=== PATIENT | female | born 1960 | race Caucasian/White ===

== ENCOUNTER 2017-11-13 06:24 | Day surgery (SDC) | payer MEDICAID ==
[~2017-11-13 06:24] MED LIST: Sodium Chloride 0.9% 10 ML Syringe FLUSH PRN
[2017-11-13] MEDS ORDERED: Sodium Chloride 0.9% 10 ML Syringe FLUSH PRN (07:00)
--- NOTE | 2017-11-13 08:53 | OR ---
DATE OF PROCEDURE: 11/13/2017 POSTOPERATIVE CARE: Postoperative care will be provided mainly at the [address] [place] [address] [facility] in conjunction with [facility]. PREOPERATIVE DIAGNOSES: 1. Nuclear sclerotic cataract, right eye. 2. Posterior subcapsular cataract, right eye. PREOPERATIVE DIAGNOSES: 1. Nuclear sclerotic cataract, right eye. 2. Posterior subcapsular cataract, right eye. PROCEDURES: 1. Phacoemulsification with intraocular lens placement, right eye. 2. Cleaning of the posterior capsule with Gorge Squee[place]e. ANESTHESIA: Topical and intracameral. ESTIMATED BLOOD LOSS: Minimal. COMPLICATIONS: None. PATHOLOGY SPECIMENS: None. SURGICAL FINDINGS: None. INDICATION FOR PROCEDURE: The patient is a 57-year-old female with history of a visually significant cataract in the right eye, which interfered with activities of daily living. This consisted of a nuclear sclerosis cataract. Following careful discussion of the risks, benefits and alternatives to cataract extraction with intraocular lens placement including blindness and , the patient elected to proceed, and informed, written consent was obtained prior to the procedure. DESCRIPTION OF THE PROCEDURE: The patient was previously identified, and a andrey placed above the right eye. All sources, including the patient, indicated that the right eye was the correct eye. The patient was subsequently taken to the operating room where standard monitors were applied. The patient was then prepped and draped in the usual sterile fashion for ophthalmic surgery. Attention was first directed at the 12 o'clock position where a paracentesis port was fashioned. Shugar solution followed by Viscoat was instilled into the eye. Attention was then directed to the 8:30 position where a triplanar incision was made in a near-clear manner using a keratome. A continuous capsulorrhexis was then made using a combination of the cystotome and Utrata forceps. Hydrodissection was achieved using a balanced salt solution, and the lens rotated nicely. Phacoemulsification was then done using a modified gjfsrx-atp-smanrws technique without complication. Phaco time was 8.64 CDE. The remaining cortex was removed using the irrigation/aspiration handpiece. A Gorge Squeegee was used to gently remove any remaining adherent posterior subcapsular cataract. Provisc was then instilled into the eye. A Technis lens, model [id number], at 15.5 diopters was then placed in the capsular bag using an [place] injector. The remaining viscoelastic was removed using the irrigation/aspiration forceps. All wounds were then checked and found to be watertight. The lid speculum and drapes were removed. Maxitrol ointment was placed in the patient's right eye, and the eye was shielded. The patient tolerated the procedure well. The patient was instructed to follow up tomorrow. All needle and sponge counts were correct at the end of the procedure. Coty Hinds MD /[id number]
== END 2017-11-13 09:11 | disposition home or self-care (01) ==
LOC: JP.SDS 06:24
PROVIDERS: ATTEND Ophthalmology
DX: H25.041 Posterior subcapsular polar age-related cataract, right eye (principal); H25.11 Age-related nuclear cataract, right eye; Z88.0 Allergy status to penicillin
CPT/HCPCS: 66984; C1780

== ENCOUNTER 2017-11-27 07:13 | Day surgery (SDC) | payer MEDICAID ==
[2017-11-27] MEDS ORDERED: Sodium Chloride 0.9% 10 ML Syringe FLUSH PRN (07:30)
--- NOTE | 2017-11-27 09:25 | OR ---
DATE OF PROCEDURE: 11/27/2017 POSTOPERATIVE CARE: Postoperative care will be provided mainly at the [address] [place] [address] [facility] in conjunction with [facility]. PREOPERATIVE DIAGNOSIS: Cataract, left eye. POSTOPERATIVE DIAGNOSIS: Cataract, left eye. PROCEDURE: Cataract extraction, phacoemulsification, and intraocular lens placement in the left eye. ANESTHESIA: Topical and intracameral. ESTIMATED BLOOD LOSS: Minimal. COMPLICATIONS: None. PATHOLOGY SPECIMENS: None. SURGICAL FINDINGS: None. INDICATION FOR PROCEDURE: The patient is a 57-year-old female with history of a visually significant cataract in the left eye, which interfered with activities of daily living. This consisted of a nuclear sclerosis cataract. Following careful discussion of the risks, benefits and alternatives to cataract extraction with intraocular lens placement including blindness and , the patient elected to proceed, and informed, written consent was obtained prior to the procedure. DESCRIPTION OF THE PROCEDURE: The patient was previously identified, and a andrey placed above the left eye. All sources, including the patient, indicated that the left eye was the correct eye. The patient was subsequently taken to the operating room where standard monitors were applied. The patient was then prepped and draped in the usual sterile fashion for ophthalmic surgery. Attention was first directed at the 12 o'clock position where a paracentesis port was fashioned. Shugar solution followed by Viscoat was instilled into the eye. Attention was then directed to the 8:30 position where a triplanar incision was made in a near-clear manner using a keratome. A continuous capsulorrhexis was then made using a combination of the cystotome and Utrata forceps. Hydrodissection was achieved using a balanced salt solution, and the lens rotated nicely. Phacoemulsification was then done using a modified yjlukw-gtw-wjbkboc technique without complication. Phaco time was 6.60 CDE. The remaining cortex was removed using the irrigation/aspiration handpiece. Provisc was then instilled into the eye. A Technis lens, model [id number], at 16.0 Diopter lens was then placed in the capsular bag using an [place] injector. The remaining viscoelastic was removed using the irrigation/aspiration forceps. All wounds were then checked and found to be watertight. The lid speculum and drapes were removed. Maxitrol ointment was placed in the patient's left eye, and the eye was shielded. The patient tolerated the procedure well. The patient was instructed to follow up tomorrow. All needle and sponge counts were correct at the end of the procedure. Coty Hinds MD /[id number]
== END 2017-11-27 09:12 | disposition home or self-care (01) ==
LOC: JP.SDS 07:13
PROVIDERS: ATTEND Ophthalmology
DX: H25.12 Age-related nuclear cataract, left eye (principal); Z88.0 Allergy status to penicillin; Z88.8 Allergy status to other drugs, medicaments and biological substances
CPT/HCPCS: C1780

== ENCOUNTER 2018-11-08 21:31 | Emergency (ER) | payer MEDICAID ==
[2018-11-08] MEDS ORDERED: Fluconazole 150 MG Tab PO ONE (22:17)
--- NOTE | 2018-11-08 22:23 | EDM.PDOC ---
ED HPI GENERAL MEDICAL PROBLEM - General Chief Complaint: Skin Complaint Stated Complaint: RASH GROIN AREA Time Seen by Provider: 11/08/18 22:00 Source of Information: Reports: Patient, Family History Limitations: Reports: No Limitations - History of Present Illness INITIAL COMMENTS - FREE TEXT/NARRATIVE: 58-year-old female with a deeply erythematous an irritating rash in the folds of the pannus and left groin. She has been prescribed Chlortrimazole topical for this in the past and started using it earlier today but tonight it bled a little bit and scared her. She wanted it checked. No fevers or chills. Onset: Unknown/Unsure Location: Reports: Abdomen, Other (Left groin) Associated Symptoms: Reports: No Other Symptoms groin rash Pain Score (Numeric/FACES): 3 - Related Data Allergies Allergy/AdvReac Type Severity Reaction Status Date / Time codeine Allergy Rash Verified 11/08/18 22:00 Penicillins Allergy Rash Verified 11/08/18 22:00 Home Meds: Home Meds Multivitamin with Minerals [Multiple Vitamin] 1 tab PO DAILY 11/10/17 [History] Cholecalciferol (Vitamin D3) [Vitamin D3] 1 cap PO DAILY 11/08/18 [History] Magnesium Oxide [Magnesium] 400 mg PO DAILY 11/08/18 [History] [place]-3 Fatty Acids/Fish Oil [Fish Oil 1,200 mg Softgel] 1 each PO DAILY [History] Past Medical History HEENT History: Reports: Cataract, Impaired Vision Gastrointestinal History: Reports: None ORCHID HAND History: Reports: Musculoskeletal History: Reports: Arthritis, Back Pain, Chronic Endocrine/Metabolic History: Reports: Obesity/BMI 30+ - Infectious Disease History Infectious Disease History: Reports: Chicken Pox - Past Surgical History Head Surgeries/Procedures: Reports: None HEENT Surgical History: Reports: Cataract Surgery GI Surgical History: Reports: Appendectomy, Cholecystectomy, Hernia Repair/Other Female Surgical History: Reports: Tubal Ligation Endocrine Surgical History: Reports: None Musculoskeletal Surgical History: Reports: None Social & Family History - Family History Family Medical History: Noncontributory - Tobacco Use Smoking Status *Q: Never Smoker - Caffeine Use Caffeine Use: Reports: Coffee - Recreational Drug Use Recreational Drug Use: No ED ROS GENERAL - Review of Systems Review Of Systems: See Below Constitutional: Denies: Fever, Chills Respiratory: Denies: Shortness of Breath, Cough Cardiovascular: Denies: Chest Pain GI/Abdominal: Denies: Abdominal Pain, Nausea, Vomiting Skin: Reports: Other (Deeply erythematous and tender rash in the pannus of the lower abdomen and left groin) Neurological: Reports: No Symptoms ED EXAM, SKIN/RASH Exam: See Below Exam Limited By: No Limitations General Appearance: Alert, No Apparent Distress Respiratory/Chest: No Respiratory Distress, Lungs Clear Cardiovascular: Regular Rate, Rhythm GI/Abdominal: Soft, Non-Tender Neurological: Alert, Oriented Skin: Other (Patient has a deeply red nonblanching shortly demarcated rash in the pannus of the lower abdomen especially on the left side extending into the left groin. The creases are affected much more than superficial areas.) Course - Vital Signs Last Recorded V/S: Last Vital Signs Temp 99.1 F 11/08/18 22:05 Pulse 102 H 11/08/18 22:05 Resp 16 11/08/18 22:05 BP 183/91 H 11/08/18 22:05 Pulse Ox 96 11/08/18 22:05 - Orders/Labs/Meds Meds: Medications Discontinued Medications Generic Name Dose Route Start Last Admin Trade Name Misty PRN Reason Stop Dose Admin Fluconazole 150 mg 11/08/18 22:17 11/08/18 22:26 Diflucan PO 11/08/18 22:18 150 mg ONETIME ONE Administration - Re-Assessments/Exams Free Text/Narrative Re-Assessment/Exam: 11/08/18 22:22 This appears to be used dermatitis. She should continue using the clotrimazole cream as prescribed, and I did allow her to mix some triamcinolone cream and with the clotrimazole. I'll also give her one oral Diflucan 150 mg now and repeat this in 4 days. She should recheck if not improving in 4-6 days. Departure - Departure Time of Disposition: 22:29 Disposition: Home, Self-Care 01 Condition: Good Clinical Impression: Yeast dermatitis - Discharge Information Instructions: Skin Yeast Infection Referrals: Tony Watts MD [Primary Care Provider] - Forms: ED Department Discharge Care Plan Goals: Continue using clotrimazole cream as prescribed and mix some triamcinolone steroid in with the cream to help with inflammation. Fill the prescription and take 1 pill on . Consider rechecking on or Friday if not improving despite treatment.
== END 2018-11-08 22:29 | disposition home or self-care (01) ==
LOC: JP.ED 21:31
DX: B37.2 Candidiasis of skin and nail (principal); Z88.5 Allergy status to narcotic agent; Z88.1 Allergy status to other antibiotic agents; Z79.899 Other long term (current) drug therapy
CPT/HCPCS: 99282; A9270

== ENCOUNTER 2023-07-02 15:43 | Emergency (ER) | payer MEDICAID | END 2023-07-02 16:06 | disposition home or self-care (01) | LOC: JP.ED 15:43 | DX: S00.81XA Abrasion of other part of head, initial encounter (principal); Z88.0 Allergy status to penicillin; Z88.5 Allergy status to narcotic agent; E66.9 Obesity, unspecified; Z68.30 Body mass index [BMI] 30.0-30.9, adult; Z90.49 Acquired absence of other specified parts of digestive tract; Y92.811 Bus as the place of occurrence of the external cause; W01.198A Fall on same level from slipping, tripping and stumbling with subsequent striking against other object, initial encounter | CPT/HCPCS: 99284 ==

== ENCOUNTER 2023-12-01 06:45 | Inpatient (IN) | payer MEDICAID ==
[2023-12-01] MEDS ORDERED: fentaNYL 100 MCG/2 ML SDV ONE (06:57)
[2023-12-01] MEDS ORDERED: Propofol 200 MG/20 ML SDV ONE (06:57)
[2023-12-01] MEDS ORDERED: Midazolam 1 MG/ML 2 ML SDV ONE (06:57)
[2023-12-01] MEDS: Lactated Ringers 1,000 ML IV SCH (07:05)
[2023-12-01 07:13] LABS: HEMATOCRIT 42.2 % (34.3-46.0); HEMOGLOBIN 14.1 g/dL (11.2-15.5); MEAN CORPUSCULAR HEMOGLOBIN 31.6 pg (31.6-35.5); MEAN CORPUSCULAR HGB CONC 33.4 g/dL (31.6-35.5); MEAN CORPUSCULAR VOLUME 94.6 fL (81.4-99.0); RED BLOOD CELL COUNT 4.46 M/uL (3.77-5.24); WHITE BLOOD CELL COUNT,WBC 6.8 K/uL (3.2-11.0)
[2023-12-01] MEDS: Nozin Nasal Sanitizer NASBOTH ONE (07:31)
[2023-12-01 07:33] LABS: A/G RATIO 0.9 (1.2-2.2); ALANINE AMINOTRANSFERASE,ALT 32 U/L (12-78); ALBUMIN 3.7 g/dL (3.4-5.0); ALKALINE PHOSPHATASE 99 U/L (46-116); ANION GAP 5.6 mmol/L (5.0-14.0); ASPARTATE AMNIOTRANSFERASE,AST 22 U/L (15-37); BILIRUBIN TOTAL 0.7 mg/dL (0.2-1.0); BLOOD UREA NITROGEN,BUN 19 mg/dL (7-18); CALCIUM 9.1 mg/dL (8.5-10.1); CARBON DIOXIDE,CO2 31 mmol/L (21-32); CHLORIDE,CL 103 mmol/L (100-108); CREATININE 0.6 mg/dL (0.6-1.0); EST CRCL DRUG DOSING (CG) 69.83 mL/min; ESTIMATED GFR 101 mL/min (>60); GLUCOSE RANDOM 96 mg/dL (74-106); PROTEIN TOTAL,TP 7.9 g/dL (6.4-8.2); SODIUM,NA 140 mmol/L (140-148)
[2023-12-01] MEDS: ceFAZolin 2 GM in Premix Bag 1 BAG IV ONE (08:50)
[2023-12-01] MEDS ORDERED: Lactated Ringers 1,000 ML ONE (09:27)
[2023-12-01] MEDS ORDERED: Morphine 2 MG/ML SYRINGE IVPUSH PRN (10:47)
[2023-12-01] MEDS ORDERED: Lidocaine 4% 1 each Patch TOP PRN (10:48)
[2023-12-01] MEDS: Bupivacaine 0.5% 50 ML MDV ONE (10:58)
[2023-12-01] MEDS: Sodium Chloride 0.9% 1,000 ML IV SCH (11:30)
[2023-12-01] MEDS: Acetaminophen 325 MG Tab PO SCH (12:04)
[2023-12-01] MEDS: oxyCODONE 5 MG Tab PO PRN ×2 (12:05→19:22)
[2023-12-01] MEDS: Ondansetron 4 MG/2 ML SDV IVPUSH PRN (13:44)
[2023-12-01] MEDS: Ketorolac 15 MG/ML SDV IVPUSH PRN (13:44)
[2023-12-01] MEDS: Triamcinolone Acetonide 0.1% Crm 15 GM Tube TOP SCH (14:16)
[2023-12-01] MEDS: ceFAZolin 2 GM in Premix Bag 1 BAG IV SCH (17:13)
[2023-12-01] MEDS: Nozin Nasal Sanitizer NASBOTH SCH (21:09)
[2023-12-02] MEDS: Acetaminophen/HYDROcodone 325-5 MG Tab PO PRN (07:16)
[2023-12-02] MEDS: Pantoprazole 40 MG Tab.CR PO SCH (07:16)
[2023-12-02] MEDS: Cholecalciferol (Vitamin D3) 25 MCG Tab PO SCH (08:15)
[2023-12-02] MEDS: Multivitamins with Iron/Calcium/Folic Acid/Minerals Tab PO SCH (08:15)
[2023-12-02] MEDS: Aspirin 325 MG Tab.EC PO SCH (08:15)
[2023-12-02] MEDS ORDERED: Non-Formulary Medication 1 Each (Ubidecarenone [Co Q-10] 200 MG Capsule) PO SCH (09:00)
[2023-12-02] MEDS: Promethazine 12.5 MG in Sodium Chloride 0.9% 50 ML IV PRN (16:59)
[2023-12-03] MEDS: Acetaminophen/oxyCODONE 325-5 MG Tab PO PRN (07:06)
[2023-12-03] MEDS: Docusate Sodium 100 MG Cap PO PRN (08:59)
[2023-12-03] MEDS: Magnesium Hydroxide 400 MG/5 ML Susp 30 ML Cup PO PRN (11:11)
[2023-12-05] MEDS: Bisacodyl 10 MG Supp RECTAL ONE (11:19)
[2023-12-05] MEDS: Furosemide 40 MG Tab PO ONE (11:19)
[2023-12-05] MEDS ORDERED: traMADol 50 MG Tab PO PRN (20:06)
[2023-12-05] MEDS: Acetaminophen 325 MG Tab PO PRN (20:17)
[2023-12-06 04:59] LABS: CALCIUM 8.7 mg/dL (8.5-10.1); CREATININE 0.5 mg/dL (0.6-1.0); EST CRCL DRUG DOSING (CG) 83.8 mL/min; POTASSIUM,K 4.1 mmol/L (3.6-5.2)
[2023-12-06 05:08] LABS: ANION GAP 4.1 mmol/L (5.0-14.0)
[2023-12-06] MEDS: Furosemide 40 MG Tab PO ONE ×2 (08:34→16:47)
[2023-12-07 00:50] LABS: APPEARANCE,URINE CLEAR (CLEAR); BILIRUBIN,URINE NEGATIVE (NEGATIVE); COLOR,URINE YELLOW (YELLOW); GLUCOSE,URINE NEGATIVE (NEGATIVE); KETONES,URINE NEGATIVE (NEGATIVE); LEUKOCYTE ESTERASE,URINE NEGATIVE (NEGATIVE); NITRITE,URINE NEGATIVE (NEGATIVE); OCCULT BLOOD,URINE NEGATIVE (NEGATIVE); PH,URINE 8.5 (5.0-8.0); PROTEIN,URINE NEGATIVE (NEGATIVE)
[2023-12-07 00:53] LABS: AMORPHOUS SEDIMENT,URINE NOT SEEN; BACTERIA,URINE FEW; EPITHELIAL CELLS,URINE RARE; MUCUS,URINE NOT SEEN; RBC,URINE 0-5 (0-5); WBC,URINE 0-5 (0-5)
[2023-12-07] MEDS: Furosemide 40 MG Tab PO SCH (08:39)
== END 2023-12-09 13:09 | disposition home or self-care (01) | DRG 470 ==
LOC: JP.SDS 06:45 → JP.MS 10:47 → JP.SDS 12-02 10:54 → JP.MS 12-02 10:54
PROVIDERS: ADMIT Specialist; ATTEND Specialist
PROC: 0SRC069 Replacement of Right Knee Joint with Oxidized Zirconium on Polyethylene Synthetic Substitute, Cemented, Open Approach (ICD-10-PCS; principal; 2023-12-02)
DX: M17.11 Unilateral primary osteoarthritis, right knee (principal); Z68.43 Body mass index [BMI] 50.0-59.9, adult; H54.7 Unspecified visual loss; M54.9 Dorsalgia, unspecified; G89.29 Other chronic pain; R09.02 Hypoxemia; E66.01 Morbid (severe) obesity due to excess calories; K21.9 Gastro-esophageal reflux disease without esophagitis; Z88.5 Allergy status to narcotic agent; Z79.899 Other long term (current) drug therapy; Z98.49 Cataract extraction status, unspecified eye; Z90.49 Acquired absence of other specified parts of digestive tract; Z98.51 Tubal ligation status; Z98.890 Other specified postprocedural states; Z87.891 Personal history of nicotine dependence
CPT/HCPCS: 36415; 71045; 71045-26; 73560-26-RT; 73560-RT; 80048; 80053; 81001; 85027; 97110-GP; 97116-GP; 97161-GP; 97165-GO; 97530-GP; 97535-GO; 99231; 99232; A9270-GY; C1713; C1776; J0665; J0690; J1885; J2250; J2405; J2550; J2704; J3010; J3490; J7030; J7120